=== PATIENT | male | born 1990 | race Native Hawaiian/Other Pacific Islander ===

== ENCOUNTER → 2017-02-08 | Outpatient (CLI) | payer OTHER ==
[~2017-02-08] MED LIST: ADV500INH INH; ALBU17IN2 INH; CYCL10TA PO; IBUP-1022 PO; MELA3TAB
--- NOTE | 2017-02-08 13:21 | REP ---
Bilateral carotid artery duplex ultrasound: Peak flow velocity analysis: RIGHT LEFT ICA. Peak flow velocity cm/sec 66 63 ICA Diastolic flow velocity cm/sec 14 28 ICA/CCA Ratio 0.61 0.62 There is no visible atheromatous plaque on the right or the left. The peak flow velocities are normal bilaterally. There is no stenosis on the right on the left. There is antegrade flow in the vertebral arteries bilaterally Signed by Ezio Beltran MD 02/08/2017 11:45 A
== END ==
LOC: M RAD 10:28
PROVIDERS: ATTEND Physician Assistant Medical
DX: M54.2 Cervicalgia (principal)

== ENCOUNTER 2017-02-19 18:09 | Emergency (ER) | payer OTHER ==
[~2017-02-19] VITALS: Ht 167.6 cm; Wt 67.7 kg
[2017-02-19] MEDS ORDERED: ADV500INH INH (18:23)
[2017-02-19] MEDS ORDERED: ALBU17IN2 INH (18:23)
[2017-02-19] MEDS ORDERED: IBUP-1022 PO (20:33)
[2017-02-19] MEDS ORDERED: CYCL10TA PO (20:33)
[2017-02-19 20:40] VITALS: BP 143/94
[2017-02-19] MEDS ORDERED: CYCLOBENZAPRINE 10 MG TAB PO ONE (20:45)
[2017-02-19] MEDS ORDERED: IBUPROFEN 600 MG TAB PO ONE (20:45)
== END 2017-02-19 20:42 | disposition home or self-care (01) ==
LOC: M ED 18:09
DX: M54.31 Sciatica, right side (principal); J45.909 Unspecified asthma, uncomplicated; Z79.899 Other long term (current) drug therapy

== ENCOUNTER 2017-03-27 21:35 | Emergency (ER) | payer OTHER ==
[~2017-03-27] VITALS: Ht 167.6 cm; Wt 65.9 kg
[~2017-03-27 21:35] MED LIST changes: -MELA3TAB
[2017-03-27] MEDS ORDERED: MELA3TAB (21:51)
[2017-03-28 00:54] VITALS: BP 140/78
== END 2017-03-28 03:07 | disposition left against medical advice (07) ==
LOC: M ED 21:35
DX: R51 Headache (principal); Z53.21 Procedure and treatment not carried out due to patient leaving prior to being seen by health care provider